=== PATIENT | female | born 2000 | race African-American/Black ===

== ENCOUNTER 2023-09-13 22:44 | Emergency (ER) | payer OTHER ==
[~2023-09-13] VITALS: Ht 162.6 cm; Wt 86.4 kg
[2023-09-13 22:47] VITALS: BP 111/68; PULSE 95; RESP 17; TEMP 98.4
[2023-09-13 23:05] LABS: COVID AG,FIA SOURCE NASAL SWAB
[2023-09-13 23:20] LABS: RAPID GROUP A STREP NEGATIVE (NEGATIVE)
[2023-09-13 23:24] LABS: INFLUENZA TYPE A NEGATIVE FOR TYPE A (NEGATIVE); INFLUENZA TYPE B NEGATIVE FOR TYPE B (NEGATIVE); SARS-COV2 (COVID) ANTIGEN,FIA Negative (Negative)
[2023-09-14] MEDS ORDERED: GUAIFDM PO (01:22)
[2023-09-14] MEDS ORDERED: ACET-66 PO (01:22)
== END 2023-09-14 01:30 | disposition home or self-care (01) ==
LOC: EMS 22:44
DX: O26.93 Pregnancy related conditions, unspecified, third trimester (principal); J06.9 Acute upper respiratory infection, unspecified; Z20.822 Contact with and (suspected) exposure to COVID-19; Z3A.35 35 weeks gestation of pregnancy
CPT/HCPCS: 87430; 87804; 99283